=== PATIENT | female | born 1990 | race Caucasian/White ===

== ENCOUNTER 2016-04-23 20:56 | Emergency (ER) | payer OTHER ==
[~2016-04-23 20:56] MED LIST: BUSPIRONE HCL15 MG PO; CETIRIZINE HCL10 M1 PO; COLACE 100MG C100 MG PO; EPIPEN 2-P0.3 MG/0.3 INJ; FLONASE 0.05% N16 GM; IBUPROFEN600 MG PO; MONTELUKAST SOD10 MG PO; NORCO 5-325 TA1 EACH PO; SPRINTEC 28 DA1 EACH PO; TRAZODONE HCL50 MG PO; VENTOLIN INHALER INH; WELLBUTRIN SR150 MG PO
== END 2016-04-24 03:15 | disposition home or self-care (01) ==
LOC: ER1 20:56
DX: L23.9 Allergic contact dermatitis, unspecified cause (principal); J45.909 Unspecified asthma, uncomplicated; F32.9 Major depressive disorder, single episode, unspecified; Z79.899 Other long term (current) drug therapy
CPT/HCPCS: 96374; 96375; 99283; J1200; J2930

== ENCOUNTER 2016-05-12 16:36 | Emergency (ER) | payer OTHER | END 2016-05-12 22:18 | disposition home or self-care (01) | LOC: ER1 16:36 | DX: R06.02 Shortness of breath (principal); R11.2 Nausea with vomiting, unspecified; R19.7 Diarrhea, unspecified; T78.1XXA Other adverse food reactions, not elsewhere classified, initial encounter; F43.10 Post-traumatic stress disorder, unspecified; Z79.899 Other long term (current) drug therapy | CPT/HCPCS: 96361; 96374; 96375; 99284; J2405; J2930; J7030; Q0163 ==

== ENCOUNTER 2016-06-24 14:56 | Emergency (ER) | payer OTHER ==
[2016-06-24 16:11] LABS: HEMOGLOBIN 13.1 gm/dl (12.3-15.3); RED BLOOD COUNT 4.21 M/UL (4.00-5.10); WHITE BLOOD COUNT 7.3 K/UL (4.5-11.0)
[2016-06-24 16:28] LABS: BUN/CREATININE RATIO 16 (0-10)
== END 2016-06-24 17:15 | disposition home or self-care (01) ==
LOC: ER1 14:56
PROVIDERS: Emergency Medicine
DX: N93.8 Other specified abnormal uterine and vaginal bleeding (principal); F41.9 Anxiety disorder, unspecified; Z79.899 Other long term (current) drug therapy
CPT/HCPCS: 36415; 80053; 81001; 83690; 84703; 85025; 87086; 96372; 99284; J1885

== ENCOUNTER → 2020-09-14 | Outpatient (CLI) | payer OTHER ==
[~2020-09-14] MED LIST changes: +PHENERGAN 25 MG25 M1 PO
== END ==
LOC: KOH-I 08:51
DX: R10.11 Right upper quadrant pain (principal); K76.0 Fatty (change of) liver, not elsewhere classified
CPT/HCPCS: 76705

== ENCOUNTER 2020-12-17 19:19 | Emergency (ER) | payer OTHER ==
[2020-12-17] MEDS ORDERED: PREDNISONE 50 M50 MG PO (20:59)
[2020-12-17] MEDS ORDERED: BENADRYL 50MG C50 MG PO (20:59)
== END 2020-12-17 21:20 | disposition home or self-care (01) ==
LOC: ER1 19:19
DX: L50.9 Urticaria, unspecified (principal); Z90.49 Acquired absence of other specified parts of digestive tract; Z88.6 Allergy status to analgesic agent; Z91.018 Allergy to other foods
CPT/HCPCS: 96374; 96375; 99282; J1200; J2930

== ENCOUNTER → 2021-07-18 | Emergency (ER) | payer OTHER ==
[~2021-07-18] MED LIST changes: +BENADRYL 50MG C50 MG PO; +PREDNISONE 50 M50 MG PO
== END | disposition home or self-care (01) ==
LOC: ER1 19:11
DX: S93.402A Sprain of unspecified ligament of left ankle, initial encounter (principal); X58.XXXA Exposure to other specified factors, initial encounter
CPT/HCPCS: 73610; 99283